=== PATIENT | male | born 1995 | race Two or more races ===

== ENCOUNTER 2016-11-11 01:30 | Emergency (ER) | payer SELFPAY ==
[~2016-11-11] VITALS: Ht 165.1 cm; Wt 77.6 kg
[2016-11-11 01:31] VITALS: BP 153/98
== END 2016-11-11 02:48 | disposition left against medical advice (07) ==
LOC: ED 02:42
DX: R10.9 Unspecified abdominal pain (principal)

== ENCOUNTER 2019-02-26 14:01 | Emergency (ER) | payer SELFPAY ==
[~2019-02-26] VITALS: Ht 165.1 cm; Wt 70.0 kg
[2019-02-26 14:10] VITALS: BP 134/76
[2019-02-26] MEDS ORDERED: CEFTRIAXONE 250 MG ONE (14:58)
[2019-02-26] MEDS ORDERED: AZITHROMYCIN 500 MG TABLET ONE (14:58)
[2019-02-26] MEDS ORDERED: CEFTRIAXONE 250 MG IM ONE (15:00)
[2019-02-26] MEDS ORDERED: AZITHROMYCIN 500 MG TABLET PO ONE (15:00)
[2019-02-26 15:08] LABS: CULTURE INDICATED? YES; MICROSCOPIC INDICATED
--- NOTE | 2019-02-26 15:29 | NUR ---
Patient/Caregiver given discharge instructions and they have confirmed that they understand the instructions. Patient ambulatory with steady gait.
== END 2019-02-26 15:30 | disposition home or self-care (01) ==
LOC: ED 14:42
DX: A74.9 Chlamydial infection, unspecified (principal); A54.9 Gonococcal infection, unspecified; F17.200 Nicotine dependence, unspecified, uncomplicated
CPT/HCPCS: 81001; 87086; 87491; 87591; 96372; 99283; J0696

== ENCOUNTER → 2020-02-01 | Outpatient (CLI) | payer OTHER | END | disposition home or self-care (01) | LOC: CVU 15:22 | PROVIDERS: ATTEND Internal Medicine Cardiovascular Disease | DX: I08.8 Other rheumatic multiple valve diseases (principal) | CPT/HCPCS: 93306 ==